=== PATIENT | female | born 2000 | race Caucasian/White ===

== ENCOUNTER 2023-12-11 18:21 | Emergency (ER) | payer SELFPAY ==
[2023-12-11 18:27] VITALS: BP 119/81; PULSE 100; RESP 17; TEMP 36.7; O2SAT 99; BMI 25.8
--- NOTE | 2023-12-11 18:31 | XRR_ITS ---
PROCEDURE INFORMATION: Exam: XR Left Ankle Exam date and time: 12/11/2023 6:36 PM Age: 23 years old Clinical indication: Injury or trauma; Fall; Patient HX: Lt ankle pain/swelling post twisting injury TECHNIQUE: Imaging protocol: Radiologic exam of the left ankle. Views: 3 or more views. COMPARISON: No relevant prior studies available. FINDINGS: Bones/joints: No acute fractures or subluxations. Soft tissues: Mild soft tissue swelling. XR/XR ankle LT min 3V* [id number] IMPRESSION: No acute fractures or subluxations. Mild soft tissue swelling.
--- NOTE | 2023-12-11 18:33 | W.ED.EXTPRO ---
HPI - Extremity Problem General: Chief complaint: Extremity Injury, Lower Stated complaint: Twisted left ankle Time Seen by Provider: 12/11/23 18:33 History of Present Illness: 23-year-old female comes in today for injury to the left ankle. Patient states that this morning she was walking to work when she twisted her left ankle. Patient did work 4 hours after placing employment, at [employer]. When patient got home this afternoon patient noticed increased swelling and discomfort. Patient came into the ER for further evaluation and concern of injury. Review of Systems General: Reports: 10 or more systems reviewed and unremarkable except in HPI and below Musc: Reports: joint pain and joint swelling Physical Exam Const: COMMON NORMALS: alert HENMT: COMMON NORMALS: normocephalic HEAD & SCALP: normocephalic Neck/C-Spine: COMMON NORMALS: full ROM Resp: COMMON NORMALS: normal respiratory effort and clear to auscultation bilaterally AUSCULTATION: clear to auscultation bilaterally Cardio: COMMON NORMALS: regular rate and regular rhythm RATE: regular rate RHYTHM: regular rhythm GI: COMMON NORMALS: Soft to palpation and non-tender PALPATION: Yes Soft to palpation : COMMON NORMALS: Yes no CVA tenderness BLADDER/KIDNEY EXAM: Yes no CVA tenderness Back/Pelvis: COMMON NORMALS: no CVA tenderness Extremity: COMMON NORMALS: normal to inspection Neuro: SENSORIUM/ORIENTATION: Yes alert Skin: COMMON NORMALS: turgor normal GENERAL SKIN EXAM: turgor normal Course Vital Signs: Vital signs: Vital Signs Temperature 98.1 F 12/11/23 18:27 Pulse Rate 100 12/11/23 18:27 Respiratory Rate 17 12/11/23 18:27 Blood Pressure 119/81 12/11/23 18:27 Pulse Oximetry 99 12/11/23 18:27 Oxygen Delivery Me thod Room Air 12/11/23 18:27 MDM - Extremity (Nontraumatic) Medical Decision Making 23-year-old female comes in today for complaints of injury to the left ankle. On exam patient has some lateral swelling of the left ankle. Distal pulses and sensation are intact. Differential diagnosis includes fracture, sprain, contusion. X-ray wet read of the ankle notes no obvious fracture. Patient was placed in an elastic bandage and crutches. Patient was recommended to increase activity as tolerated. Patient was recommended return as needed for worsening symptoms or new concerns. XR interpretation done by ED provider, pending radiology final review Discharge Plan Discharge Patient Disposition: Home Clinical Impression: Ankle sprain and strain Condition: Stable Discharge Orders: Discharge ED (Routine); Ordered 12/11/23 Ordered By: Mart Pedroza Discharge Diet: Usual diet Discharge Activity: Increase activity as tolerated Patient Instructions: Ankle Sprain (ED) Activity Restrictions/Additional Instructions: Activity as tolerated. Use an elastic bandage for comfort. Elevate ankle is much as possible for swelling and discomfort. Use acetaminophen ibuprofen for pain. Use ice packs for further pain relief. Follow-up with primary care for further instructions. Return to ED for new concerns. Stand Alone Forms: Work/School Release Coding Level of Care Code ED [employer] for [employer]
[2023-12-11 19:21] VITALS: BP 119/81; PULSE 100; RESP 17; TEMP 36.7; O2SAT 99
== END 2023-12-11 19:23 | disposition home or self-care (01) ==
PROVIDERS: Emergency Provider Nurse Practitioner Family
DX: S93.402A Sprain of unspecified ligament of left ankle, initial encounter (principal); S96.912A Strain of unspecified muscle and tendon at ankle and foot level, left foot, initial encounter; X50.1XXA Overexertion from prolonged static or awkward postures, initial encounter
CPT/HCPCS: 73610; 99283